=== PATIENT | female | born 1940 | race Caucasian/White ===

== ENCOUNTER 2016-12-23 11:13 | Emergency (ER) | payer OTHER ==
[~2016-12-23] VITALS: Ht 157.5 cm; Wt 49.9 kg
--- NOTE | 2016-12-23 11:20 | NUR ---
aaox3, came to er c/o pain to left orbital, left rib cage and left elbow s/p tripped and fell last night. -ko. skin is warm and dry. resp is even and unlabored with nad noted. skin is warm and dry. Dr Sullivan at [facility] for eval.
[2016-12-23] MEDS ORDERED: TDAP [DIPH/PERTUSSIS/TET] 0.5 ML VIAL IM ONE ×2 (11:46→12:00)
--- NOTE | 2016-12-23 11:51 | NUR ---
Dr Sullivan for wound care
[2016-12-23] MEDS ORDERED: ACETAMINOPHEN ES 500 MG TABLET PO ONE (12:00)
--- NOTE | 2016-12-23 12:20 | NUR ---
[facility]
[2016-12-23] MEDS ORDERED: ACETAMINOPHEN ES 500 MG TABLET ONE (12:57)
[2016-12-23 14:35] VITALS: BP 152/89
--- NOTE | 2016-12-23 14:36 | NUR ---
Patient discharged to home in stable condition. Written and verbal after care instructions given. Patient verbalizes understanding of instruction. Provided incentive spirometer.
== END 2016-12-23 14:36 | disposition home or self-care (01) ==
LOC: ER 11:18
DX: S01.81XA Laceration without foreign body of other part of head, initial encounter (principal); S20.212A Contusion of left front wall of thorax, initial encounter; S50.02XA Contusion of left elbow, initial encounter; I10 Essential (primary) hypertension; F32.9 Major depressive disorder, single episode, unspecified; Z88.2 Allergy status to sulfonamides; Z88.8 Allergy status to other drugs, medicaments and biological substances; W01.10XA Fall on same level from slipping, tripping and stumbling with subsequent striking against unspecified object, initial encounter; Y93.01 Activity, walking, marching and hiking; Y92.89 Other specified places as the place of occurrence of the external cause; Y99.8 Other external cause status
CPT/HCPCS: 12011; 70450; 70486; 71100; 90471; 90715; 93005; 99284; A4606; A6403; Z7610

== ENCOUNTER 2017-02-08 23:55 | Emergency (ER) | payer OTHER ==
[~2017-02-08] VITALS: Ht 157.5 cm; Wt 49.9 kg
--- NOTE | 2017-02-09 01:55 | NUR ---
to bed 3 ambulatory c/o nosebleed since 1400. pt aaox4 no acute distress noted, resp even and unlabored. pending er md bernard.
[2017-02-09] MEDS ORDERED: AMOX/CLAVULANATE 875 MG TABLET PO ONE (02:30)
[2017-02-09] MEDS ORDERED: AMOX/CLAVULANATE 875 MG TABLET ONE (02:42)
--- NOTE | 2017-02-09 02:48 | NUR ---
Patient discharged to home in stable condition. Written and verbal after care instructions given. Patient verbalizes understanding of instruction. ambulatory with a steady gait
[2017-02-09 02:49] VITALS: BP 141/76
== END 2017-02-09 02:50 | disposition home or self-care (01) ==
LOC: ER 23:59
DX: R04.0 Epistaxis (principal); I10 Essential (primary) hypertension; F32.9 Major depressive disorder, single episode, unspecified; Z88.2 Allergy status to sulfonamides; Z88.8 Allergy status to other drugs, medicaments and biological substances
CPT/HCPCS: 30901; 99283; A4606 ×2; Z7610

== ENCOUNTER 2017-02-20 04:39 | Emergency (ER) | payer OTHER ==
[~2017-02-20] VITALS: Ht 152.4 cm; Wt 52.2 kg
[2017-02-20 04:40] VITALS: BP 142/94
== END 2017-02-20 05:06 | disposition home or self-care (01) ==
LOC: ER 04:41
DX: Z48.00 Encounter for change or removal of nonsurgical wound dressing (principal); R09.81 Nasal congestion; I10 Essential (primary) hypertension; F32.9 Major depressive disorder, single episode, unspecified; Z88.2 Allergy status to sulfonamides; Z88.1 Allergy status to other antibiotic agents
CPT/HCPCS: 99281; A4606; Z7502; Z7610

== ENCOUNTER 2017-04-09 07:31 | Emergency (ER) | payer OTHER ==
[~2017-04-09] VITALS: Ht 154.9 cm; Wt 54.4 kg
[2017-04-09] MEDS ORDERED: LORAZEPAM 0.5 MG TABLET PO ONE (08:00)
[2017-04-09] MEDS ORDERED: LORAZEPAM 1 MG TABLET ONE (08:04)
--- NOTE | 2017-04-09 08:12 | NUR ---
Patient discharged to home in stable condition. Written and verbal after care instructions given. Patient verbalizes understanding of instruction.
[2017-04-09 08:18] VITALS: BP 161/85
== END 2017-04-09 08:26 | disposition home or self-care (01) ==
LOC: ER 07:48
DX: Z76.0 Encounter for issue of repeat prescription (principal); F41.9 Anxiety disorder, unspecified; T45.0X5A Adverse effect of antiallergic and antiemetic drugs, initial encounter; Y92.89 Other specified places as the place of occurrence of the external cause; I10 Essential (primary) hypertension; F32.9 Major depressive disorder, single episode, unspecified; Z88.2 Allergy status to sulfonamides; Z88.8 Allergy status to other drugs, medicaments and biological substances
CPT/HCPCS: 99283; A4606; Z7610

== ENCOUNTER 2017-07-31 20:55 | Emergency (ER) | payer OTHER ==
[~2017-07-31] VITALS: Ht 157.5 cm; Wt 47.2 kg
[2017-07-31 21:15] VITALS: BP 136/78
== END 2017-08-01 | disposition home or self-care (01) ==
LOC: ER 20:55
DX: J32.9 Chronic sinusitis, unspecified (principal); E11.9 Type 2 diabetes mellitus without complications; I10 Essential (primary) hypertension; Z88.2 Allergy status to sulfonamides; Z88.8 Allergy status to other drugs, medicaments and biological substances
CPT/HCPCS: 71045-TC; A4606; Z7610